=== PATIENT | male | born 2000 | race Caucasian/White ===

== ENCOUNTER 2023-02-16 17:15 | Emergency (ER) | payer OTHER, MEDICAID ==
[~2023-02-16] VITALS: Ht 175.3 cm; Wt 61.2 kg
[2023-02-16 17:15] VITALS: BP_SYST 112; PULSE 59; RESP 17; TEMP 98.5; O2SAT 98
[2023-02-16] MEDS ORDERED: CYCL10TA24 PO (18:25)
[2023-02-16] MEDS ORDERED: ACET-2634 PO (18:25)
[2023-02-16] MEDS ORDERED: IBUP-1969 PO (18:25)
[2023-02-16] MEDS ORDERED: IBUPROFEN 600 MG TABLET PO ONE (18:30)
[2023-02-16] MEDS ORDERED: LIDOCAINE PATCH 5% 1 EA TP ONE (18:30)
== END 2023-02-16 18:38 | disposition home or self-care (01) ==
LOC: SED 17:15
DX: S16.1XXA Strain of muscle, fascia and tendon at neck level, initial encounter (principal); J45.909 Unspecified asthma, uncomplicated; V89.2XXA Person injured in unspecified motor-vehicle accident, traffic, initial encounter; Y93.89 Activity, other specified; Y92.89 Other specified places as the place of occurrence of the external cause; Y99.8 Other external cause status
CPT/HCPCS: 99283